=== PATIENT | male | born 1990 | race Caucasian/White ===

== ENCOUNTER 2016-08-05 15:35 | Emergency (ER) | payer OTHER ==
--- NOTE | 2016-08-05 16:22 | DIAGNOSTIC IMAGING REPORT ---
PROCEDURE: XR LUMBAR SPINE 2 OR 3 VIEWS INDICATION: LOWER BACK PAIN TECHNIQUE: Three views. COMPARISON: None. FINDINGS: Normal alignment without fracture. Straightening of the lumbar spine. Mild L4-5 disc spacer and minor spur formation. Soft tissues are unremarkable. IMPRESSION: 1. Mild L4-5 disc space narrowing 2. Straightening of the lumbar spine suggestive of muscular spasm
--- NOTE | 2016-08-05 16:43 | ED CLINICAL REPORT ---
Clinical Report - Physicians/Mid Levels [facility] [address] [address] 08/05/2016 15:36 Patient: ALIN PIRES Time Seen: 15:43; upon arrival, initial patient contact, initial documentation, patient care assumed. Arrived- By private vehicle. Historian- patient. HISTORY OF PRESENT ILLNESS Chief Complaint: BACK PAIN and CHRONIC BACK PAIN. It is described as being severe and in the area of the mid lumbar spine and lower lumbar spine and radiating to the upper back, to the right hip and thigh and to the left hip and thigh. The quality is noted to be "pain" and similar to prior episodes. Modifying factors- worsened by standing, walking, rotation of the body to the right or left, bending over or lifting. Not relieved by anything. Onset- about 5 years ago and it is still present (worse since 5 days ago). No bladder dysfunction, bowel dysfunction or sensory loss. Additional history - was seeing chiropractor and doing adjustments, no xrays done, took otc motrin and gma's pain pill, no relief. Patient denies an injury but injury to the head or neck. No other injury. Similar symptoms previously: Chronically, milder. Recent medical care: Not recently seen/assessed. REVIEW OF SYSTEMS No fever, difficulty with urination, urinary frequency, hematuria or difficulty breathing. No chest pain or abdominal pain. All systems otherwise negative, except as recorded above. PAST HISTORY See nurses notes. The patient has had prior back pain. PROBLEMS: Contusion. Fall. Chronic Knee pain. Gastroesophageal Reflux Disease. Pharyngitis. Otitis Media. --15:49 Roopa Hardin. SOCIAL HISTORY Heavy tobacco smoker. Occasional alcohol use. No drug use. No recent travel. Is a local resident. FAMILY HISTORY Negative. ADDITIONAL NOTES The nursing notes have been reviewed with agreement regarding the chief complaint, HPI, ROS, PMH and patient medications and allergies. PHYSICAL EXAM Vital Signs: 08/05/2016 15:51 BP: 149/99. HR: 112. RR: 22. O2 saturation: 99%. Temp: 98.1 F. Have been reviewed as abnormal and appear to be correct. Hypertensive. Tachycardic. Respiratory rate normal. Temperature normal. Oxygen saturation normal. Appearance: Alert. No acute distress. Anxious. HEENT: Normal external inspection. Eyes: Pupils equal, round and reactive to light. Neck: Normal inspection. Neck nontender. Painless ROM. CVS: Heart sounds normal. Pulses normal. Respiratory: No respiratory distress. Breath sounds normal. Abdomen: No visible injury. Soft and nontender. Back: No tenderness. Abnormal inspection. No painless ROM. Mildly limited ROM in the back- in the lumbar spine: decreased flexion, right lateral bending, left lateral bending and rotation to the right and left. No muscle spasm in the back, vertebral point tenderness, soft tissue tenderness or CVA tenderness. Skin: Skin warm and dry. Normal skin color. No rash. Normal skin turgor. Extremities: Extremities exhibit normal ROM. Extremities nontender. Neuro: Oriented X 3. Mood/affect normal. No motor deficit. No sensory deficit. LABS, X-RAYS, AND EKG X-Rays: LS spine series negative. LS-Spine X-rays: (IMPRESSION: 1. Mild L4-5 disc space narrowing 2. Straightening of the lumbar spine suggestive of muscular spasm Electronically Final signed by:Greg Holley MD 08/05/2016 4:22:23 PM). Interpretation time: 16:33. PROGRESS AND PROCEDURES Course of Care: pt declined pain shot offer, saying he 'doesn't do needles'. 08/05/2016 16:40 BP: 128/70. HR: 87. RR: 15. O2 saturation: 99%. Vital Signs: have been reviewed as normal and appear to be correct. Patient counseled in person regarding the patient's stable condition, test results and diagnosis. 16:33. Differential Diagnosis: I considered Musculo-skeletal strain, contusion, disk protrusion, vertebral fracture, facet syndrome, sacroiliac joint strain, sciatica, osteoarthritis, lumbar spondylosis, spinal stenosis, ankylosing spondylitis and sacroiliac joint inflammation as a possible cause of back pain in this patient. This is a partial list of diagnoses considered. Above considerations are based on history, physical exam, reassessment and X-Ray data. Differential diagnosis was discussed with patient. Disposition: Discharged home in good and improved condition (16:43). Condition: good and stable. CLINICAL IMPRESSION Chronic nontraumatic lumbar back pain. Sciatica present on the right and left. INSTRUCTIONS Warnings: GENERAL WARNINGS: Return or contact your physician immediately if your condition worsens or changes unexpectedly, if not improving as expected, or if other problems arise. SPECIFICALLY, return if you develop incontinence of urine (loss of bladder control). Prescription Medications: Flexeril 10 mg: Take 1 orally every 8 hours as needed for muscle spasm. Dispense twenty (20). No refills. Substitution is permissible. Ultram 50 mg tablets: take 1-2 orally every 6 hours as needed for pain. Dispense twenty (20). No refills. Substitution is permissible. Follow-up: Follow up with your doctor in about one week as needed. Call for an appointment. Summary of care provided to patient. Screening today revealed the patient's blood pressure to be in the hypertensive range. Blood pressure screening was not performed during this visit because blood pressure screening was precluded by clinical urgency. The patient should follow up with a primary care provider for blood pressure management. Understanding of the discharge instructions verbalized by patient. (Electronically signed by Jyotsna Win A.R.N.P. 08/05/2016 18:09)
--- NOTE | 2016-08-05 16:43 | ED NURSING NOTES ---
Clinical Report - Nurses [facility] [address] [place] [address] 08/05/2016 15:36 [id number] Triage time 15:44 Aug 05 2016. Acuity: LEVEL 4. Chief Complaint: BACK PAIN. 15:51 08/05/16. Alert. SEPSIS SCREEN: Sepsis Screen. Negative (no infection suspected/documented). RIZWANA COMA SCORE: [place] Coma Scale: 15- eyes open spontaneously (4); best verbal response- oriented x 4 (5); best motor response- obeys commands (6). --15:51 Roopa Hardin 15:51 08/05/16. BP: 149/99. HR: 112. RR: 22. O2 saturation: 99%. Temp: 98.1 F. Pain level now 12/07. --15:51 Roopa Hardin 16:10 08/05/16. --16:10 Roopa Hardin. Weight: 106.5 kg stated. Height/Length: 73 inches Per Patient. BMI: 31. --15:46 Roopa Hardin. Medications None. --15:47 Roopa Hardin. Medication/allergy information source: the patient. --15:51 Roopa Hardin. Allergies None. --15:47 Roopa Hardin. History Arrived by private vehicle. Historian: patient. Unaccompanied (States that girlfriend can cotton picker patient.). No primary care physician. Onset. (Tuesday Night). ( Patient states that he has lower back pain that started on Tuesday. Reports prior injury to lumber spine (hyper extension). Patient states that today is the worse pain that he's had. Denies bowel/bladder problems. Denies N/V/D. Patient reports shooting pain up spine and down legs.). He has had generalized tingling,, trouble walking and extremity pain. Occurred at home. No numbness. 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 PAST MEDICAL HX: Tetanus status: up-to-date. Immunizations: up-to-date. SOCIAL HX: Heavy tobacco smoker (cigarette)- less than 1 pack per day. Occasional alcohol use. No drug use. FALL RISK ASSESSMENT: Fall risk assessment completed. No fall risk identified. NUTRITIONAL RISK ASSESSMENT: The nutritional risk assessment revealed no deficiencies. FUNCTIONAL ASSESSMENT: Functional assessment: no impairments noted. LEARNING NEEDS ASSESSMENT: The learning needs assessment revealed no barriers. SKIN INTEGRITY ASSESSMENT: Skin integrity risk assessment completed. No skin integrity risk identified. --15:51 Roopa Hardin Treatment SALES DEVELOPER: (Nabumetone). --16:10 Roopa Hardin. PROBLEMS: Contusion. Fall. Chronic Knee pain. Gastroesophageal Reflux Disease. Pharyngitis. Otitis Media. --15:49 Roopa Hardin. Assessment The patient states feels the same. --15:51 Roopa Hardin. Interventions ID band on patient. --15:51 Roopa Hardin. PHYSICAL ASSESSMENT 15:52 08/05/16. Ambulatory to room. Patient gowned. GENERAL / NEURO / PSYCH: Alert. Oriented X 4. Appears in pain. RESPIRATORY: Respirations not labored. Chest nontender. CVS: Capillary refill less than 2 seconds. GI / : Abdomen soft and nontender. EXTREMITIES: Limited ROM present. BACK: Normal inspection of the neck and back. Limited ROM of the back. No vertebral point tenderness. Soft tissue tenderness. --15:52 Roopa Hardin. NURSING PROGRESS NOTES 15:53 08/05/16. Neuro-vascular extremity check. No cold pack applied. Patient gowned. Reassurance given. Call light placed in reach. Patient ready for evaluation- chart flagged and ED physician and DEVELOPMENT VICE PRESIDENT notified. --15:53 Roopa Hardin 15:58 08/05/2016 Hydrocodone-APAP (Hydrocodone-Acetaminophen) PO 5/325 mg Tablets 1 tab given. Allergies verified, confirmed 5 rights and sedative warning given to the patient. --15:58 Roopa Hardin 15:58 08/05/16. Patient walked to radiology with tech. (15:58 Aug 05 2016). --15:58 Roopa Hardin 15:59 08/05/2016 Zofran ODT (Ondansetron) PO Oral Disintegrating Tablets 4 mg given. Allergies verified and confirmed 5 rights. --15:59 Roopa Hardin Patient walked back to ED from radiology with tech. (16:06 Aug 05 2016). --16:09 Roopa Hardin 16:40 08/05/16. BP: 128/70. HR: 87. RR: 15. O2 saturation: 99%. Pain level now 12/07. --16:41 Roopa Hardin. DISPOSITION / DISCHARGE 17:00 08/05/16. Departure time: 17:Aug 05 2016. Condition at departure: improved. The goals identified in the patient's plan of care were met. No learning barriers present. Discharge instructions provided and reviewed with the patient. Reviewed warnings (Patient verbalized understanding of sedation warning.). Reviewed medication(s) side effects, precautions, dosing and course information. Prescription(s) given to the patient (Flexeril, ultram). Treatments reviewed. Reviewed referral to a primary care physician for followup. Patient verbalized understanding. Written instructions provided in Bermudian. The patient was discharged by the nurse practitioner. He was discharged home and accompanied by Pt states girlfriend will cotton picker. He left the Emergency Department ambulatory and via private vehicle. Chief Clinical Dietitian driving. FALL RISK ASSESSMENT: Fall risk assessment completed. No fall risk identified. --17:00 Roopa Hardin 16:59 08/05/16. BP: deferred. HR: deferred. RR: deferred. O2 saturation: deferred. Temp: deferred. Pain level now deferred. --17:00 Roopa Hardin. Locked/Released at 08/05/2016 17:01 by Roopa Hardin,
--- NOTE | 2016-08-05 16:43 | ED NURSING NOTES ---
Clinical Report - Nurses [facility] [address] [place] [address] 08/05/2016 15:36 [id number] Triage time 15:44 Aug 05 2016. Acuity: LEVEL 4. Chief Complaint: BACK PAIN. 15:51 08/05/16. Alert. SEPSIS SCREEN: Sepsis Screen. Negative (no infection suspected/documented). RIZWANA COMA SCORE: [place] Coma Scale: 15- eyes open spontaneously (4); best verbal response- oriented x 4 (5); best motor response- obeys commands (6). --15:51 Roopa Hardin 15:51 08/05/16. BP: 149/99. HR: 112. RR: 22. O2 saturation: 99%. Temp: 98.1 F. Pain level now 12/07. --15:51 Roopa Hardin 16:10 08/05/16. --16:10 Roopa Hardin. Weight: 106.5 kg stated. Height/Length: 73 inches Per Patient. BMI: 31. --15:46 Roopa Hardin. Medications None. --15:47 Roopa Hardin. Medication/allergy information source: the patient. --15:51 Roopa Hardin. Allergies None. --15:47 Roopa Hardin. History Arrived by private vehicle. Historian: patient. Unaccompanied (States that girlfriend can clam picker patient.). No primary care physician. Onset. (Tuesday Night). ( Patient states that he has lower back pain that started on Tuesday. Reports prior injury to lumber spine (hyper extension). Patient states that today is the worse pain that he's had. Denies bowel/bladder problems. Denies N/V/D. Patient reports shooting pain up spine and down legs.). He has had generalized tingling,, trouble walking and extremity pain. Occurred at home. No numbness. 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 PAST MEDICAL HX: Tetanus status: up-to-date. Immunizations: up-to-date. SOCIAL HX: Heavy tobacco smoker (cigarette)- less than 1 pack per day. Occasional alcohol use. No drug use. FALL RISK ASSESSMENT: Fall risk assessment completed. No fall risk identified. NUTRITIONAL RISK ASSESSMENT: The nutritional risk assessment revealed no deficiencies. FUNCTIONAL ASSESSMENT: Functional assessment: no impairments noted. LEARNING NEEDS ASSESSMENT: The learning needs assessment revealed no barriers. SKIN INTEGRITY ASSESSMENT: Skin integrity risk assessment completed. No skin integrity risk identified. --15:51 Roopa Hardin Treatment SPIKE MACHINE OPERATOR: (Nabumetone). --16:10 Roopa Hardin. PROBLEMS: Contusion. Fall. Chronic Knee pain. Gastroesophageal Reflux Disease. Pharyngitis. Otitis Media. --15:49 Roopa Hardin. Assessment The patient states feels the same. --15:51 Roopa Hardin. Interventions ID band on patient. --15:51 Roopa Hardin. PHYSICAL ASSESSMENT 15:52 08/05/16. Ambulatory to room. Patient gowned. GENERAL / NEURO / PSYCH: Alert. Oriented X 4. Appears in pain. RESPIRATORY: Respirations not labored. Chest nontender. CVS: Capillary refill less than 2 seconds. GI / : Abdomen soft and nontender. EXTREMITIES: Limited ROM present. BACK: Normal inspection of the neck and back. Limited ROM of the back. No vertebral point tenderness. Soft tissue tenderness. --15:52 Roopa Hardin. NURSING PROGRESS NOTES 15:53 08/05/16. Neuro-vascular extremity check. No cold pack applied. Patient gowned. Reassurance given. Call light placed in reach. Patient ready for evaluation- chart flagged and ED physician and DISTANCE LEARNING UNIT LEADER notified. --15:53 Roopa Hardin 15:58 08/05/2016 Hydrocodone-APAP (Hydrocodone-Acetaminophen) PO 5/325 mg Tablets 1 tab given. Allergies verified, confirmed 5 rights and sedative warning given to the patient. --15:58 Roopa Hardin 15:58 08/05/16. Patient walked to radiology with tech. (15:58 Aug 05 2016). --15:58 Roopa Hardin 15:59 08/05/2016 Zofran ODT (Ondansetron) PO Oral Disintegrating Tablets 4 mg given. Allergies verified and confirmed 5 rights. --15:59 Roopa Hardin Patient walked back to ED from radiology with tech. (16:06 Aug 05 2016). --16:09 Roopa Hardin 16:40 08/05/16. BP: 128/70. HR: 87. RR: 15. O2 saturation: 99%. Pain level now 12/07. --16:41 Roopa Hardin. DISPOSITION / DISCHARGE 17:00 08/05/16. Departure time: 17:Aug 05 2016. Condition at departure: improved. The goals identified in the patient's plan of care were met. No learning barriers present. Discharge instructions provided and reviewed with the patient. Reviewed warnings (Patient verbalized understanding of sedation warning.). Reviewed medication(s) side effects, precautions, dosing and course information. Prescription(s) given to the patient (Flexeril, ultram). Treatments reviewed. Reviewed referral to a primary care physician for followup. Patient verbalized understanding. Written instructions provided in Haitian. The patient was discharged by the nurse practitioner. He was discharged home and accompanied by Pt states girlfriend will clam picker. He left the Emergency Department ambulatory and via private vehicle. Electric Engine Mechanic driving. FALL RISK ASSESSMENT: Fall risk assessment completed. No fall risk identified. --17:00 Roopa Hardin 16:59 08/05/16. BP: deferred. HR: deferred. RR: deferred. O2 saturation: deferred. Temp: deferred. Pain level now deferred. --17:00 Roopa Hardin. Locked/Released at 08/05/2016 17:01 by Roopa Hardin,
--- NOTE | 2016-08-05 16:43 | ED ORDER SUMMARY ---
..... Patient: ALIN PIRES OrderSheet [facility] VisitID: [id number] [place] [address] 26y, M Registration Date/Time: 08/05/2016 ORDER SHEET Weight: 106.5 kg (stated) Allergies: None GENERAL ORDERS: Lumbar Spine 2 or 3V Urgent (15:51 08/05/2016 HBivens A.R.N.P.) (Ack 15:54 Meng) (16:09 ASchmuck) MEDICATION ORDERS: Hydrocodone-APAP PO 5/325 mg (NOW, HIGH ALERT MEDICATION) (15:51 08/05/2016 HBivens A.R.N.P.) (Ack 15:55 ASchmuck) (15:58 ASchmuck) Zofran ODT PO 4 mg (NOW) (15:55 08/05/2016 HBivens A.R.N.P.) (Ack 15:55 ASchmuck) (15:59 ASchmuck) IV FLUIDS: ORDER SHEET NOTES: [Electronically signed by Roopa Hardin (17:01 08/05/2016)] [Electronically signed by Jyotsna Win A.R.N.P. (18:09 08/05/2016)] [Electronically locked/signed by Roopa Hardin (17:01 08/05/2016)]
--- NOTE | 2016-08-05 16:43 | ED ORDER SUMMARY ---
..... Patient: ALIN PIRES OrderSheet [facility] VisitID: [id number] [place] [address] 26y, M Registration Date/Time: 08/05/2016 ORDER SHEET Weight: 106.5 kg (stated) Allergies: None GENERAL ORDERS: Lumbar Spine 2 or 3V Urgent (15:51 08/05/2016 HBivens A.R.N.P.) (Ack 15:54 Meng) (16:09 ASchmuck) MEDICATION ORDERS: Hydrocodone-APAP PO 5/325 mg (NOW, HIGH ALERT MEDICATION) (15:51 08/05/2016 HBivens A.R.N.P.) (Ack 15:55 ASchmuck) (15:58 ASchmuck) Zofran ODT PO 4 mg (NOW) (15:55 08/05/2016 HBivens A.R.N.P.) (Ack 15:55 ASchmuck) (15:59 ASchmuck) IV FLUIDS: ORDER SHEET NOTES: [Electronically signed by Roopa Hardin (17:01 08/05/2016)] [Electronically signed by Jyotsna Win A.R.N.P. (18:09 08/05/2016)] [Electronically locked/signed by Roopa Hardin (17:01 08/05/2016)]
--- NOTE | 2016-08-05 18:09 | ED MED RECONCILIATION SUMMARY ---
Patient: ALIN PIRES Medication Reconciliation Report [facility] VisitID: [id number] [address] [place] [address] 26y, M Registration Date/Time: 08/05/2016 Weight: 106.5 kg Height/Length: 73 in. BMI: 31.0 ALLERGIES: None The patient's Home Medications are listed below: NONE. The source(s) of the original Home Medication information: patient The following Medications were given to the patient in the Emergency Department: Hydrocodone-APAP [PO] PO 1 tab, administered: 08/05/2016 3:58:00 PM Zofran ODT [PO] PO 4 mg, administered: 08/05/2016 3:59:00 PM The following Medications were prescribed to the patient: Flexeril 10 mg: Take 1 orally every 8 hours as needed for muscle spasm. Dispense twenty (20). No refills. Substitution is permissible. -- Jyotsna Win A.R.N.P. Ultram 50 mg tablets: take 1-2 orally every 6 hours as needed for pain. Dispense twenty (20). No refills. Substitution is permissible. -- Jyotsna Win A.R.N.P.
--- NOTE | 2016-08-05 18:09 | ED MED RECONCILIATION SUMMARY ---
Patient: ALIN PIRES Medication Reconciliation Report [facility] VisitID: [id number] [address] [place] [address] 26y, M Registration Date/Time: 08/05/2016 Weight: 106.5 kg Height/Length: 73 in. BMI: 31.0 ALLERGIES: None The patient's Home Medications are listed below: NONE. The source(s) of the original Home Medication information: patient The following Medications were given to the patient in the Emergency Department: Hydrocodone-APAP [PO] PO 1 tab, administered: 08/05/2016 3:58:00 PM Zofran ODT [PO] PO 4 mg, administered: 08/05/2016 3:59:00 PM The following Medications were prescribed to the patient: Flexeril 10 mg: Take 1 orally every 8 hours as needed for muscle spasm. Dispense twenty (20). No refills. Substitution is permissible. -- Jyotsna Win A.R.N.P. Ultram 50 mg tablets: take 1-2 orally every 6 hours as needed for pain. Dispense twenty (20). No refills. Substitution is permissible. -- Jyotsna Win A.R.N.P.
--- NOTE | 2016-08-05 18:09 | ED MAR SUMMARY ---
..... Medication Administration Record [facility] [address] [place] [address] Patient: ALIN PIRES Visit ID: [id number] 26y, M Weight: 106.5 kg Height/Length: 73 in BMI: 31 ALLERGIES: None Given 15:58 08/05/2016 Roopa Hardin, Medication Administered: HYDROCODONE-APAP [PO] (HYDROCODONE-ACETAMINOPHEN), Dose: 1 tab 5/325 mg Tablets PO. Medication Ordered: Hydrocodone-APAP PO 5/325 mg (NOW, HIGH ALERT MEDICATION). Given 15:59 08/05/2016 Roopa Hardin, Medication Administered: ZOFRAN ODT [PO] (ONDANSETRON), Dose: 4 mg Oral Disintegrating Tablets PO. Medication Ordered: Zofran ODT PO 4 mg (NOW).
--- NOTE | 2016-08-05 18:09 | ED MAR SUMMARY ---
..... Medication Administration Record [facility] [address] [place] [address] Patient: ALIN PIRES Visit ID: [id number] 26y, M Weight: 106.5 kg Height/Length: 73 in BMI: 31 ALLERGIES: None Given 15:58 08/05/2016 Roopa Hardin, Medication Administered: HYDROCODONE-APAP [PO] (HYDROCODONE-ACETAMINOPHEN), Dose: 1 tab 5/325 mg Tablets PO. Medication Ordered: Hydrocodone-APAP PO 5/325 mg (NOW, HIGH ALERT MEDICATION). Given 15:59 08/05/2016 Roopa Hardin, Medication Administered: ZOFRAN ODT [PO] (ONDANSETRON), Dose: 4 mg Oral Disintegrating Tablets PO. Medication Ordered: Zofran ODT PO 4 mg (NOW).
--- NOTE | 2016-08-05 18:09 | ED DISCHARGE INSTRUCTIONS ---
Patient: ALIN PIRES General Instructions [facility] VisitID: [id number] [address] [place] [address] 26y, M Registration Date/Time: 08/05/2016 Chronic nontraumatic lumbar back pain. Sciatica present on the right and left. INSTRUCTIONS Warnings: GENERAL WARNINGS: Return or contact your physician immediately if your condition worsens or changes unexpectedly, if not improving as expected, or if other problems arise. SPECIFICALLY, return if you develop incontinence of urine (loss of bladder control). Prescription Medications: Flexeril 10 mg: Take 1 orally every 8 hours as needed for muscle spasm. Dispense twenty (20). No refills. Substitution is permissible. Ultram 50 mg tablets: take 1-2 orally every 6 hours as needed for pain. Dispense twenty (20). No refills. Substitution is permissible. Follow-up: Follow up with your doctor in about one week as needed. Call for an appointment. Summary of care provided to patient. Screening today revealed the patient's blood pressure to be in the hypertensive range. Blood pressure screening was not performed during this visit because blood pressure screening was precluded by clinical urgency. The patient should follow up with a primary care provider for blood pressure management. Understanding of the discharge instructions verbalized by patient. ADDITIONAL INFORMATION Back Pain [Acute Or Chronic] Back pain is usually caused by an injury to the muscles or ligaments of the spine. Sometimes the disks that separate each bone in the spine may bulge and cause pain by pressing on a nearby nerve. Back pain may also appear after a sudden twisting/bending force (such as in a car accident), after a simple awkward movement, or lifting something heavy with poor body positioning. In either case, muscle spasm is often present and adds to the pain. Acute back pain usually gets better in one to two weeks. Back pain related to disk disease, arthritis in the spinal joints or spinal stenosis (narrowing of the spinal canal) can become chronic and last for months or years. Unless you had a physical injury (for example, a car accident or fall) X-rays are usually not ordered for the initial evaluation of back pain. If pain continues and does not respond to medical treatment, x-rays and other tests may be performed at a later time. Home Care: You may need to stay in bed the first few days. But, as soon as possible, begin sitting or walking to avoid problems with prolonged bed rest (muscle weakness, worsening back stiffness and pain, blood clots in the legs). When in bed, try to find a position of comfort. A firm mattress is best. Try lying flat on your back with pillows under your knees. You can also try lying on your side with your knees bent up towards your chest and a pillow between your knees. Avoid prolonged sitting. This puts more stress on the lower back than standing or walking. During the first two days after injury, apply an ICE PACK to the painful area for 20 minutes every 2-4 hours. This will reduce swelling and pain. HEAT (hot shower, hot bath or heating pad) works well for muscle spasm. You can start with ice, then switch to heat after two days. Some patients feel best alternating ice and heat treatments. Use the one method that feels the best to you. You may use acetaminophen (Tylenol) or ibuprofen (Motrin, Advil) to control pain, unless another pain medicine was prescribed. [NOTE: If you have chronic liver or kidney disease or ever had a stomach ulcer or GI bleeding, talk with your doctor before using these medicines.] Be aware of safe lifting methods and do not lift anything over 15 pounds until all the pain is gone. Follow Up with your doctor or this facility if your symptoms do not start to improve after one week. Physical therapy may be needed. [NOTE: If X-rays were taken, they will be reviewed by a radiologist. You will be notified of any new findings that may affect your care.] Get Prompt Medical Attention if any of the following occur: Pain becomes worse or spreads to your legs Weakness or numbness in one or both legs Loss of bowel or bladder control Numbness in the groin or genital area Sciatica Sciatica ("Lumbar Radiculopathy") causes a pain that spreads from the lower back down into the buttock, hip and leg. Sometimes leg pain can occur without any back pain. Sciatica is due to irritation or pressure on a spinal nerve as it comes out of the spinal canal. This is most often due to a bulge or rupture of a nearby spinal disk (the cartilage cushion between each spinal bone), which presses on a nearby nerve. Other causes include spinal stenosis (narrowing of the spinal canal) and spasm of the pyriform muscle (a muscle in the buttocks that the sciatic nerve passes through). Sciatica may begin after a sudden twisting/bending force (such as in a car accident), or sometimes after a simple awkward movement. In either case, muscle spasm is commonly present and contributes to the pain. The diagnosis of sciatica is made from the symptoms and physical exam. Unless you had a physical injury (such as a car accident or fall), X-rays are usually not ordered for the initial evaluation of sciatica because the nerves and disks cannot be seen on an x-ray. If signs of a compressed nerve are present (for example, loss of tendon reflex or strength in the leg), an MRI (magnetic resonance imaging) scan will need to be scheduled as an outpatient. Most sciatica (80-90%) gets better with medicine, exercise, physical therapy. If symptoms continue after at least three months of medical treatment, surgery may be considered. Home Care: You may need to stay in bed the first few days. But, as soon as possible, begin sitting or walking to avoid problems with prolonged bed rest. When in bed, try to find a position of comfort. A firm mattress is best. Try lying flat on your back with pillows under your knees. You can also try lying on your side with your knees bent up towards your chest and a pillow between your knees. Avoid prolonged sitting. This puts more stress on the lower back than standing or walking. Some persons find relief with heat (hot shower, hot bath or heating pad) and massage, while others prefer cold packs (crushed or cubed ice in a plastic bag, wrapped in a towel). Try both and use the method that feels best for 20 minutes several times a day. You may use acetaminophen (Tylenol) or ibuprofen (Motrin, Advil) to control pain, unless another pain medicine was prescribed. [ NOTE: If you have chronic liver or kidney disease or ever had a stomach ulcer or GI bleeding, talk with your doctor before using these medicines.] Be aware of safe lifting methods and do not lift anything over 15 pounds until all the pain is gone. Follow Up with your doctor or this facility if your symptoms do not start to improve after one week. Physical therapy or further testing may be needed. [NOTE: If X-rays were taken, they will be reviewed by a radiologist. You will be notified of any new findings that may affect your care.] Get Prompt Medical Attention if any of the following occur: Pain becomes worse, not controlled by the prescribed medicine Weakness or numbness in one or both legs Numbness in the groin, genital area Loss of bowel or bladder control Back Spasm [No Trauma] Spasm of the back muscles can occur after a sudden forceful twisting or bending force (such as in a car accident), after a simple awkward movement, or after lifting something heavy with poor body positioning. In either case, muscle spasm is often present and adds to the pain.Sleeping in an awkward position or on a poor quality mattress can also cause this. Some persons respond to emotional stress by tensing the muscles of their back. The treatment described below will usually help the pain to go away in 5-7 days. Pain that continues may require further evaluation or other types of treatment such as physical therapy. Unless you had a physical injury (for example, a car accident or fall), x-rays are usually not ordered for the initial evaluation of back pain. If pain continues and does not respond to medical treatment, x-rays and other tests may be performed at a later time. Home Care: You may need to stay in bed the first few days. But, as soon as possible, begin sitting or walking to avoid problems with prolonged bed rest (muscle weakness, worsening back stiffness and pain, blood clots in the legs). When in bed, try to find a position of comfort. A firm mattress is best. Try lying flat on your back with pillows under your knees. You can also try lying on your side with your knees bent up toward your chest and a pillow between your knees. Avoid prolonged sitting. This puts more stress on the lower back than standing or walking. Some persons find relief with heat (hot shower, hot bath, or heating pad) and massage, while others prefer cold packs (crushed or cubed ice in a plastic bag, wrapped in a towel). Try both and use the method that feels best for 20 minutes several times a day. You may use acetaminophen (Tylenol) or ibuprofen (Motrin, Advil) to control pain, unless another pain medicine was prescribed. [NOTE: If you have chronic liver or kidney disease or ever had a stomach ulcer or GI bleeding, talk with your doctor before using these medicines.] Gentle stretching will help your back heal faster. Perform this simple routine 2-3 times a day until your back is feeling better. LOW BACK STRETCH Lie on your back with your knees bent and both feet on the ground. Slowly raise your left knee to your chest as you flatten your lower back against the floor. Hold for 5 seconds. Relax and repeat the exercise with your right knee. Do 10 of these exercises for each leg. Repeat, hugging both knees to your chest at the same time. Be aware of safe lifting methods and do not lift anything over 15 pounds until all the pain is gone. Follow Up with your doctor or this facility if your symptoms do not start to improve after one week. Physical therapy or further tests may be needed. [NOTE: If x-rays were taken, they will be reviewed by a radiologist. You will be notified of any new findings that may affect your care.] Return Promptly or contact your doctor if any of the following occurs: Pain becomes worse or spreads to your legs Weakness or numbness in one or both legs Loss of bowel or bladder control Numbness in the groin or genital area Unexplained fever over 100.4F (38.0C) Burning or pain when passing urine Cyclobenzaprine Hydrochloride Oral tablet What is this medicine? CYCLOBENZAPRINE (sye moe DANIEL sahil alen) is a muscle relaxer. It is used to treat muscle pain, spasms, and stiffness. How should I use this medicine? Take this medicine by mouth with a glass of water. Follow the directions on the prescription label. If this medicine upsets your stomach, take it with food or milk. Take your medicine at regular intervals. Do not take it more often than directed. Talk to your brand marketing intern regarding the use of this medicine in children. Special care may be needed. What side effects may I notice from receiving this medicine? Side effects that you should report to your doctor or health behavioral health care manager as soon as possible: allergic reactions like skin rash, itching or hives, swelling of the face, lips, or tongue chest pain fast heartbeat hallucinations seizures vomiting Side effects that usually do not require medical attention (report to your doctor or health behavioral health care manager if they continue or are bothersome): headache What may interact with this medicine? Do not take this medicine with any of the following medications: cisapride droperidol flecainide grepafloxacin halofantrine levomethadyl MAOIs like Carbex, Eldepryl, Marplan, Nardil, and Parnate nilotinib pimozide probucol sertindole This medicine may also interact with the following medications: abarelix alcohol contrast dyes dolasetron guanethidine medicines for cancer medicines for depression, anxiety, or psychotic disturbances medicines to treat an irregular heartbeat medicines used for sleep or numbness during surgery or procedure methadone octreotide ondansetron palonosetron phenothiazines like chlorpromazine, mesoridazine, prochlorperazine, thioridazine some medicines for infection like alfuzosin, chloroquine, clarithromycin, levofloxacin, mefloquine, pentamidine, troleandomycin tramadol vardenafil What if I miss a dose? If you miss a dose, take it as soon as you can. If it is almost time for your next dose, take only that dose. Do not take double or extra doses. Where should I keep my medicine? Keep out of the reach of children. Store at room temperature between 15 and 30 degrees C (59 and 86 degrees F). Keep container tightly closed. Throw away any unused medicine after the expiration date. What should I tell my health care provider before I take this medicine? They need to know if you have any of these conditions: heart disease, irregular heartbeat, or previous heart attack liver disease thyroid problem an unusual or allergic reaction to cyclobenzaprine, tricyclic antidepressants, lactose, other medicines, foods, dyes, or preservatives or trying to get breast-feeding What should I watch for while using this medicine? Check with your doctor or health behavioral health care manager if your condition does not improve within 1 to 3 weeks. You may get drowsy or dizzy when you first start taking the medicine or change doses. Do not drive, use machinery, or do anything that may be dangerous until you know how the medicine affects you. Stand or sit up slowly. Your mouth may get dry. Drinking water, chewing sugarless gum, or sucking on hard candy may help. Tramadol Hydrochloride Oral tablet What is this medicine? TRAMADOL (TRA ma dole) is a pain reliever. It is used to treat moderate to severe pain in adults. How should I use this medicine? Take this medicine by mouth with a full glass of water. Follow the directions on the prescription label. If the medicine upsets your stomach, take it with food or milk. Do not take more medicine than you are told to take. Talk to your brand marketing intern regarding the use of this medicine in children. Special care may be needed. What side effects may I notice from receiving this medicine? Side effects that you should report to your doctor or health behavioral health care manager as soon as possible: allergic reactions like skin rash, itching or hives, swelling of the face, lips, or tongue breathing difficulties, wheezing confusion itching light headedness or fainting spells redness, blistering, peeling or loosening of the skin, including inside the mouth seizures Side effects that usually do not require medical attention (report to your doctor or health behavioral health care manager if they continue or are bothersome): constipation dizziness drowsiness headache nausea, vomiting What may interact with this medicine? Do not take this medicine with any of the following medications: MAOIs like Carbex, Eldepryl, Marplan, Nardil, and Parnate This medicine may also interact with the following medications: alcohol or medicines that contain alcohol antihistamines benzodiazepines bupropion carbamazepine or oxcarbazepine clozapine cyclobenzaprine digoxin furazolidone linezolid medicines for depression, anxiety, or psychotic disturbances medicines for migraine headache like almotriptan, eletriptan, frovatriptan, naratriptan, rizatriptan, sumatriptan, zolmitriptan medicines for pain like pentazocine, buprenorphine, butorphanol, meperidine, nalbuphine, and propoxyphene medicines for sleep muscle relaxants naltrexone phenobarbital phenothiazines like perphenazine, thioridazine, chlorpromazine, mesoridazine, fluphenazine, prochlorperazine, promazine, and trifluoperazine procarbazine warfarin What if I miss a dose? If you miss a dose, take it as soon as you can. If it is almost time for your next dose, take only that dose. Do not take double or extra doses. Where should I keep my medicine? Keep out of the reach of children. Store at room temperature between 15 and 30 degrees C (59 and 86 degrees F). Keep container tightly closed. Throw away any unused medicine after the expiration date. What should I tell my health care provider before I take this medicine? They need to know if you have any of these conditions: brain tumor depression drug abuse or addiction head injury if you frequently drink alcohol containing drinks kidney disease or trouble passing urine liver disease lung disease, asthma, or breathing problems seizures or epilepsy suicidal thoughts, plans, or attempt; a previous suicide attempt by you or a family member an unusual or allergic reaction to tramadol, codeine, other medicines, foods, dyes, or preservatives or trying to get breast-feeding What should I watch for while using this medicine? Tell your doctor or health behavioral health care manager if your pain does not go away, if it gets worse, or if you have new or a different type of pain. You may develop tolerance to the medicine. Tolerance means that you will need a higher dose of the medicine for pain relief. Tolerance is normal and is expected if you take this medicine for a long time. Do not suddenly stop taking your medicine because you may develop a severe reaction. Your body becomes used to the medicine. This does NOT mean you are addicted. Addiction is a behavior related to getting and using a drug for a non-medical reason. If you have pain, you have a medical reason to take pain medicine. Your doctor will tell you how much medicine to take. If your doctor wants you to stop the medicine, the dose will be slowly lowered over time to avoid any side effects. You may get drowsy or dizzy. Do not drive, use machinery, or do anything that needs mental alertness until you know how this medicine affects you. Do not stand or sit up quickly, especially if you are an older patient. This reduces the risk of dizzy or fainting spells. Alcohol can increase or decrease the effects of this medicine. Avoid alcoholic drinks. You may have constipation. Try to have a bowel movement at least every 2 to 3 days. If you do not have a bowel movement for 3 days, call your doctor or health behavioral health care manager. Your mouth may get dry. Chewing sugarless gum or sucking hard candy, and drinking plenty of water may help. Contact your doctor if the problem does not go away or is severe. You have been given the following additional information: Back Pain (Acute Or Chronic) Back Pain W/ Sciatica Back Spasm, No Trauma Cyclobenzaprine Hydrochloride Oral tablet Tramadol Hydrochloride Oral tablet (Electronically signed by Jyotsna Win A.R.N.P. 08/05/2016 18:09)
== END 2016-08-05 17:00 | disposition home or self-care (01) ==
LOC: ED SRH 15:35
DX: M54.41 Lumbago with sciatica, right side (principal); M54.42 Lumbago with sciatica, left side; G89.29 Other chronic pain; K21.9 Gastro-esophageal reflux disease without esophagitis; F17.210 Nicotine dependence, cigarettes, uncomplicated